=== PATIENT | male | born 1940 | race Caucasian/White ===

== ENCOUNTER 2017-08-13 10:07 | Emergency (ER) | payer OTHER ==
[~2017-08-13] VITALS: Ht 160 cm; Wt 63.7 kg
[~2017-08-13 10:07] MED LIST: AMLODIPINE BESYL5 MG PO; ANTIVERT25 MG PO; BAYER CHEWABLE81 MG PO; LISINOPRIL20 MG PO; MECLIZINE HCL25 MG PO; PRAVACHOL20 MG PO; VITAMIN B12 PO
[2017-08-13 11:22] LABS: BASOPHIL (%) 0.4 % (0-1); EOSINOPHIL (%) 2.5 % (0-5); EOSINOPHIL COUNT 0.2 K/uL (0-0.3); HEMATOCRIT 40.5 % (38.0-50.0); HEMOGLOBIN 14.3 G/DL (12.5-16.6); IMMATURE GRANULOCYTE (%) 0.3 % (0.0-0.7); LYMPHOCYTE (%) 18.4 % (15-42); LYMPHOCYTE COUNT 1.7 K/uL (1.0-2.8); MCH 32.1 PG (29.0-34.0); MCHC 35.3 G/DL (30.0-36.0); MONOCYTE (%) 8.6 % (3-12); MONOCYTE COUNT 0.8 K/uL (0-0.8); NEUTROPHIL (%) 69.8 % (45-76); NEUTROPHIL COUNT 6.4 K/uL (1.8-6.4); PLATELET COUNT 255 K/uL (156-360); RBC DIS.WIDTH-SD 40.3 % (39-53); RED BLOOD COUNT 4.45 M/uL (4.00-5.50); WHITE BLOOD COUNT 9.2 K/uL (4.1-10.2)
[2017-08-13 11:33] LABS: CHLORIDE 93 mEq/L (99-109); POTASSIUM 3.9 mEq/L (3.7-5.4); SODIUM 130 mEq/L (136-147)
[2017-08-13 11:34] LABS: GLUCOSE 148 mg/dL (70-99)
[2017-08-13 11:38] LABS: CREATININE 1.2 mg/dL (0.6-1.3); GFR ESTIMATE (CALCULATED) > 59 mL/min/ (58.99-99999)
[2017-08-13 11:39] LABS: UREA NITROGEN (BUN) 22 mg/dL (9-23)
[2017-08-13] MEDS ORDERED: TYLENOL WITH C1 EACH PO (13:32)
[2017-08-13 14:15] VITALS: BP 118/70
== END 2017-08-13 14:15 | disposition home or self-care (01) ==
LOC: EME 10:07
PROVIDERS: Emergency Medicine
DX: M79.604 Pain in right leg (principal); M79.1 Myalgia; E87.1 Hypo-osmolality and hyponatremia; I10 Essential (primary) hypertension; E78.5 Hyperlipidemia, unspecified; F17.200 Nicotine dependence, unspecified, uncomplicated; Z96.0 Presence of urogenital implants
CPT/HCPCS: 80048; 85025; 93970; 99281; 99285; J2405

== ENCOUNTER 2017-08-20 08:37 | Emergency (ER) | payer OTHER ==
[~2017-08-20] VITALS: Ht 160 cm; Wt 59.0 kg
[~2017-08-20 08:37] MED LIST changes: +TYLENOL WITH C1 EACH PO
[2017-08-20] MEDS ORDERED: ATARAX,VISTARIL50 MG PO (09:06)
[2017-08-20 09:20] VITALS: BP 136/90
== END 2017-08-20 09:18 | disposition home or self-care (01) ==
LOC: EME 08:37
DX: G89.29 Other chronic pain (principal); M79.604 Pain in right leg; Z76.0 Encounter for issue of repeat prescription
CPT/HCPCS: 99281; 99283